=== PATIENT | female | born 1995 | race Two or more races ===

== ENCOUNTER 2021-05-01 10:52 | Emergency (ER) | payer OTHER, SELFPAY ==
[2021-05-01 11:19] LABS: #Eosinphils 0.2 10x3/uL (0.0-0.5); #Monocytes 0.5 10x3/uL (0.0-1.1); %Basophils 0.5 % (0.0-2.0); %Eosinophils 2.1 % (0.0-6.0); %Lymphocytes 43.7 % (18.0-47.0); %Monocytes 5.7 % (0.0-10.0); %Neutrophils 47.9 % (40.0-75.0); Hemoglobin 13.3 g/dL (12.0-15.5); Mean Corpuscular HGB CONC 32.4 g/dL (32.0-36.0); Mean Corpuscular Hemoglobin 30.5 pg (27.0-33.0); Mean Corpuscular Volume 94.3 fl (81.6-98.3); Platelet Count 220 10x3/uL (150-450); RBC Distribution Width 13.1 % (11.5-14.5); Red Blood Cell (RBC) Count 4.36 10x6/uL (3.90-5.03); White Blood Cell (WBC) Count 8.3 10x3/uL (3.5-10.5)
[2021-05-01 11:29] LABS: BHCG - Serum Negative (NEGATIVE)
[2021-05-01 11:30] LABS: Pregs Control Background? CLEAR/WHITE (CLR/WHITE); Pregs Control Bar Appear? YES (CONTROL BAR)
[2021-05-01 11:35] LABS: Acetaminophen Less than 6.0 mcg/mL (10.0-30.0); Alcohol Less than 10 mg/dL (Less than 10); CK (CPK) 57 U/L (29-168); Salicylate Less than 8.0 mg/dL (15.0-30.0)
[2021-05-01 11:37] LABS: ALT (SGPT) 11 U/L (8-55); AST (SGOT) 15 U/L (5-34); Albumin 4.8 g/dL (3.5-5.0); Alkaline Phosphatase 44 U/L (40-110); Anion Gap 12 mmol/L (10-20); BUN (Urea Nitrogen) 14 mg/dL (7.0-18.7); Bilirubin, Total 0.3 mg/dL (0.2-1.2); Calc. Creatinine Clearance 0 mL/min (70-130); Calcium 9.4 mg/dL (7.8-10.44); Carbon Dioxide 23 mmol/L (22-29); Chloride 109 mmol/L (98-107); Globulin 2.8 g/dL (2.4-3.5); Glucose 95 mg/dL (70-105); Protein, Total 7.6 g/dL (6.0-8.3); Sodium 140 mmol/L (136-145)
[2021-05-01] MEDS ORDERED: Ondansetron PF 4 MG/2 ML Vial ONE ×2 (11:40→14:57)
[2021-05-01 12:24] LABS: Bilirubin Neg (Negative); Blood, Urine 10 (Negative); Clarity Clear (Clear); Glucose, Urine (Dipstick) Normal (Negative); Ketone, Urine Negative (Negative); Leukocyte 100 (Negative); Nitrite Negative (Negative); Protein, Urine (Dipstick) 30 mg/dl (Neg-Trace); Urobilinogen Normal mg/dL (Less than 2); pH, Urine 6.5 (5.0-9.0)
[2021-05-01 12:32] LABS: Amphetamine Not Detected (NotDetected); Barbiturates Screen Not Detected (NotDetected); Benzodiazepine Screen Not Detected (NotDetected); Cocaine Metabolite Screen Not Detected (NotDetected); Methadone Not Detected (NotDetected); Methamphetamine Not Detected (NotDetected); Opiate Screen Not Detected (NotDetected); Oxycodone Screen Not Detected (NotDetected); Phencyclidine (PCP) Not Detected (NotDetected); THC/Cannabinoid Screen Not Detected (NotDetected); Tricyclic Screen Not Detected (NotDetected)
[2021-05-01 12:52] LABS: Bacteria/HPF 1+ HPF (None Seen); RBC/HPF 0-3 HPF (0-3); Squamous Epithelial 0-3 HPF (0-3)
[2021-05-01] MEDS ORDERED: clonazePAM 0.5 MG TAB ONE (13:06)
[2021-05-01] MEDS ORDERED: Nicotine 14 MG PATCH ONE (13:35)
[2021-05-01 15:50] LABS: SARS-CoV-2 NAA Rapid Test Not Detected (NotDetected)
[2021-05-01] MEDS ORDERED: Acetaminophen 500 MG TAB ONE (16:12)
[2021-05-02] MEDS ORDERED: hydrOXYzine 25 MG TAB ONE (03:48)
[2021-05-02] MEDS ORDERED: clonazePAM 0.5 MG TAB ONE (21:27)
== END 2021-05-03 17:36 | disposition home or self-care (01) ==
LOC: CSHERS 10:52
DX: T43.222A Poisoning by selective serotonin reuptake inhibitors, intentional self-harm, initial encounter (principal); F32.9 Major depressive disorder, single episode, unspecified; Z79.899 Other long term (current) drug therapy; Z20.822 Contact with and (suspected) exposure to COVID-19
CPT/HCPCS: 80053; 80306; 80307; 81003; 81015; 82550; 83735; 84703; 85025; 87086; 93005; 96374; 96376; J2405; U0002

== ENCOUNTER 2023-08-24 19:47 | Emergency (ER) | payer OTHER, SELFPAY ==
[2023-08-24] MEDS ORDERED: Acetaminophen/Codeine 30-300mg Tablet ONE (21:05)
[2023-08-24] MEDS ORDERED: Ondansetron PF 4 MG/2 ML Vial ONE (21:05)
[2023-08-24 21:07] LABS: #Eosinphils 0.1 10x3/uL (0.0-0.5); #Monocytes 0.7 10x3/uL (0.0-1.1); #Neutrophils 5.8 10x3/uL (1.5-8.4); %Basophils 0.2 % (0.0-2.0); %Lymphocytes 25.9 % (18.0-47.0); %Monocytes 7.6 % (0.0-10.0); %Neutrophils 65.2 % (40.0-75.0); Hematocrit 36.3 % (34.9-44.5); Hemoglobin 12.4 g/dL (12.0-15.5); Mean Corpuscular HGB CONC 34.2 g/dL (32.0-36.0); Mean Corpuscular Hemoglobin 31.6 pg (27.0-33.0); Mean Corpuscular Volume 92.6 fl (81.6-98.3); Mean Platelet Volume 11.5 fl (7.4-10.4); Platelet Count 208 10x3/uL (150-450); RBC Distribution Width 12.8 % (11.5-14.5); Red Blood Cell (RBC) Count 3.92 10x6/uL (3.90-5.03)
[2023-08-24 21:07] LABS: Bilirubin Neg (Negative); Blood, Urine Negative (Negative); Clarity Clear (Clear); Glucose, Urine (Dipstick) Normal (Negative); Ketone, Urine Negative (Negative); Leukocyte Negative (Negative); Nitrite Negative (Negative); Protein, Urine (Dipstick) Negative (Neg-Trace); Specific Gravity, Urine 1.015 (1.005-1.030); Urobilinogen Normal mg/dL (Less than 2)
[2023-08-24 21:15] LABS: Bacteria/HPF Rare-Few HPF (None Seen); CAUTI Indications for Culture Dysuria,urgency,freq; RBC/HPF 0-3 HPF (0-3); Squamous Epithelial 0-3 HPF (0-3); WBC/HPF 0-3 HPF (0-3)
[2023-08-24 21:16] LABS: Urine Culture Reflex No No
[2023-08-24 21:16] LABS: ALT (SGPT) 19 U/L (8-55); AST (SGOT) 19 U/L (5-34); Albumin 4.1 g/dL (3.5-5.0); Alkaline Phosphatase 56 U/L (40-110); Anion Gap 13 mmol/L (10-20); BUN (Urea Nitrogen) 7 mg/dL (7.0-18.7); Bilirubin, Total 0.3 mg/dL (0.2-1.2); Calc. Creatinine Clearance 0 mL/min (70-130); Calcium 9.1 mg/dL (7.8-10.44); Carbon Dioxide 23 mmol/L (22-29); Chloride 105 mmol/L (98-107); Estimated GFR 111; Globulin 2.6 g/dL (2.4-3.5); Glucose 77 mg/dL (70-105); Lipase 25 U/L (8-78); Potassium 3.7 mmol/L (3.5-5.1); Protein, Total 6.7 g/dL (6.0-8.3); Sodium 137 mmol/L (136-145)
[2023-08-24 21:19] LABS: Troponin I Less than 0.010 ng/mL (< 0.028)
== END 2023-08-24 22:25 | disposition home or self-care (01) ==
LOC: CSHERS 19:47
DX: O99.512 Diseases of the respiratory system complicating pregnancy, second trimester (principal); Z3A.18 18 weeks gestation of pregnancy
CPT/HCPCS: 71045; 80053; 81001; 83690; 84484; 85025; 85379; 93005; 96374; J2405